=== PATIENT | female | born 1960 | race Caucasian/White ===

== ENCOUNTER → 2020-03-12 07:37 | Outpatient (BNVA) | payer BC, SELFPAY | PROVIDERS: Family Provider Family Medicine; Visit Provider Nurse Practitioner Psychiatric/Mental Health | DX: F90.0 Attention-deficit hyperactivity disorder, predominantly inattentive type (principal); F33.42 Major depressive disorder, recurrent, in full remission | CPT/HCPCS: 99213 ==

== ENCOUNTER → 2020-07-09 07:36 | Outpatient (BNVA) | payer BC, SELFPAY | PROVIDERS: Family Provider Family Medicine; Visit Provider Nurse Practitioner Psychiatric/Mental Health | DX: F90.0 Attention-deficit hyperactivity disorder, predominantly inattentive type (principal); F33.42 Major depressive disorder, recurrent, in full remission | CPT/HCPCS: 99213 ==

== ENCOUNTER → 2020-11-01 07:28 | Outpatient (BNVA) | payer BC, SELFPAY | PROVIDERS: Family Provider Family Medicine; Visit Provider Nurse Practitioner Psychiatric/Mental Health | DX: F90.0 Attention-deficit hyperactivity disorder, predominantly inattentive type (principal); F33.42 Major depressive disorder, recurrent, in full remission | CPT/HCPCS: 99213 ==

== ENCOUNTER 2021-12-15 13:09 | Outpatient (CLI) | payer OTHER, SELFPAY ==
--- NOTE | 2021-12-15 13:18 | XR_ITS ---
WS: [id number] Exam: XR lumbar spine 2-3V* [id number] Date/Time of Exam: 12/15/2021 1:40 PM Reason For Exam: BACK PAIN No acute fracture or dislocation. Degenerative disc changes and mild spondylosis at all levels. Facet DJD at all levels. Moderate levoscoliosis. SI joint DJD noted bilaterally. XR/XR lumbar spine 2-3V* [id number] IMPRESSION: 1. Moderate degenerative changes and levoscoliosis. 2. No fracture or malalignment.
--- NOTE | 2021-12-15 13:18 | XR_ITS ---
WS: [id number] Exam: XR knee LT 1-2V [id number] Date/Time of Exam: 12/15/2021 1:40 PM Reason For Exam: L KNEE PAIN Comparison 04/24/2010. No acute fracture or dislocation. Severe degeneration of the lateral joint compartment with near bone -on-bone articulation. No significant joint effusion. Spurring of the posterior patella. XR/XR knee LT 1-2V [id number] IMPRESSION: 1. Marked degenerative change of the lateral joint compartment. 2. No acute fracture.
== END 2021-12-15 13:10 | disposition home or self-care (01) ==
LOC: RAD 13:10
PROVIDERS: Family Provider Family Medicine; Visit Provider Family Medicine
DX: M47.896 Other spondylosis, lumbar region (principal); M17.12 Unilateral primary osteoarthritis, left knee; M25.562 Pain in left knee; M54.50 Low back pain, unspecified
CPT/HCPCS: 72100; 73560

== ENCOUNTER → 2022-02-10 14:09 | Outpatient (BNVA) | payer MEDICAID, SELFPAY | PROVIDERS: Family Provider Family Medicine; Visit Provider Family Medicine | DX: N19 Unspecified kidney failure (principal); E11.9 Type 2 diabetes mellitus without complications; I10 Essential (primary) hypertension | CPT/HCPCS: 80048 ==

== ENCOUNTER → 2022-03-13 08:55 | Outpatient (BNVA) | payer MEDICAID, SELFPAY | PROVIDERS: Family Provider Family Medicine; Visit Provider Nurse Practitioner Family | DX: B37.2 Candidiasis of skin and nail (principal); R19.7 Diarrhea, unspecified | CPT/HCPCS: 87493 ==

== ENCOUNTER → 2022-10-01 08:41 | Outpatient (BNVA) | payer MEDICAID, SELFPAY | PROVIDERS: Family Provider Family Medicine; PCP Family Medicine; Visit Provider Family Medicine | DX: I10 Essential (primary) hypertension (principal); E78.5 Hyperlipidemia, unspecified; R73.9 Hyperglycemia, unspecified; Z00.00 Encounter for general adult medical examination without abnormal findings | CPT/HCPCS: 80053; 80061; 83036; 84443 ==

== ENCOUNTER → 2023-03-12 07:59 | Outpatient (BNVA) | payer MEDICAID, SELFPAY | PROVIDERS: Family Provider Family Medicine; PCP Family Medicine; Visit Provider Family Medicine | DX: B88.2 Other arthropod infestations (principal); E13.9 Other specified diabetes mellitus without complications | CPT/HCPCS: 80053; 83036; 86618; 86666; 86757 ==

== ENCOUNTER 2023-05-06 02:15 | Emergency (ER) | payer MEDICAID, SELFPAY ==
[2023-05-06 02:20] VITALS: BP 131/63; PULSE 94; RESP 18; TEMP 36.3; O2SAT 100; BMI 29.0
[2023-05-06 02:40] VITALS: BP 131/63; PULSE 86; RESP 20; O2SAT 95
--- NOTE | 2023-05-06 02:54 | XRR_ITS ---
PROCEDURE INFORMATION: Exam: XR Chest Exam date and time: 05/06/2023 2:59 AM Age: 63 years old Clinical indication: Dyspnea; Patient HX: Patient says she has been spraying insecticide the last two days and has gone downhill, started lexapro recently also, small wound to left breast with redness, HX of smoking; Additional info: Dyspnea chemical inhalation TECHNIQUE: Imaging protocol: Radiologic exam of the chest. Views: 1 view. COMPARISON: No relevant prior studies available. FINDINGS: Lungs: Unremarkable. No consolidation. Pleural spaces: Unremarkable. No pleural effusion. No pneumothorax. Heart/Mediastinum: Unremarkable. No cardiomegaly. Bones/joints: Unremarkable. XR/XR chest 1V portable [id number] IMPRESSION: No acute findings.
--- NOTE | 2023-05-06 03:13 | ED_ITS ---
HPI - General Adult General: Chief complaint: General Medical Stated complaint: Stong on Breast Inhaled Fumes Time Seen by Provider: 05/06/23 02:52 History of Present Illness: Patient presents to the ER with complaints of being stung on the inside of her left breast by wasp., Inhaled a bunch of chemical insecticides now her lungs burn, she is having a side effect to Lexapro that she started 2 days ago and since then she has no appetite and has had a bunch of nausea. Review of Systems General: Reports: 10 or more systems reviewed and unremarkable except in HPI and below PFSH ED PFSH: Medical History ADHD (attention deficit hyperactivity disorder), inattentive type Cigarette nicotine dependence Major depression, recurrent, full remission Major depressive disorder, recurrent episode, moderate with anxious distress Psychiatric care Physical Exam Const: COMMON NORMALS: no acute distress, average body habitus, patient oriented x3, no limitations, healthy appearing, alert and well nourished HENMT: COMMON NORMALS: normocephalic, atraumatic, hearing grossly normal bilaterally, external ears normal, Normal external nose present and moist oral mucous membranes HEAD & SCALP: normocephalic and atraumatic NOSE: Normal external nose present EXTERNAL EAR: Yes external ears normal Eye: COMMON NORMALS: Equal, round and reactive pupils present, EOMs intact bilaterally, conjunctivae normal and no scleral icterus CONJUNCTIVA: Yes conjunctivae normal PUPIL: Yes Equal, round and reactive pupils present Neck/C-Spine: COMMON NORMALS: full ROM, no lymphadenopathy, supple, no meningeal signs, no JVD and Thyroid normal THYROID: Thyroid normal Chest: COMMONS NORMALS: normal inspection of the chest and normal palpation of entire chest wall; negative for normal inspection of the breasts (Lesion on medial side of left breast with 1 cm radius erythema around could) Breast/axilla inspection: No normal inspection of the breasts (Lesion on medial side of left breast with 1 cm radius erythema around could) Resp: COMMON NORMALS: normal respiratory effort, No retractions, No use of accessory muscles and clear to auscultation bilaterally AUSCULTATION: clear to auscultation bilaterally Cardio: COMMON NORMALS: no JVD, regular rate, regular rhythm, S1 normal heart sound present, S2 normal heart sound present, No gallops present (Cardio), No clicks present (Cardio), No murmurs present (Cardio) and No rub (Cardio) RATE: regular rate RHYTHM: regular rhythm HEART SOUNDS: S1 normal heart sound present and S2 normal heart sound present GI: COMMON NORMALS: Normal to inspection, nondistended, normoactive bowel sounds present, Soft to palpation, non-tender, No hepatosplenomegaly present and no masses PALPATION: Yes Soft to palpation and Yes No hepatosplenomegaly present : COMMON NORMALS: Yes no CVA tenderness BLADDER/KIDNEY EXAM: Yes no CVA tenderness Back/Pelvis: COMMON NORMALS: no CVA tenderness Neuro: COMMON NORMALS: patient oriented x3 SENSORIUM/ORIENTATION: Yes alert MENINGEAL SIGNS: Yes no meningeal signs Course Vital Signs: Vital signs: Vital Signs Temperature 97.4 F L 05/06/23 02:20 Pulse Rate 86 05/06/23 02:40 Respiratory Rate 20 H 05/06/23 02:40 Blood Pressure 131/63 05/06/23 02:40 Pulse Oximetry 95 05/06/23 02:40 Oxygen Delivery Me thod Room Air 05/06/23 02:20 MDM - General Adult Medical Decision Making Patient presents ER multiple things going on. Probable side effect of Lexapro, bee sting, and chemical inhalation to her lungs. Chest x-ray was obtained which was negative. Physical exam was performed. Patient was given 10 mg Decadron IM and will be discharged home. Patient was instructed to DC the Lexapro and follow-up with her PCP. Differential Diagnosis Medication side effect, insect sting, chemical pneumonitis Medical Records I reviewed the patient's medical records. Lab Data I reviewed the patient's lab results. Discharge Plan Discharge Patient Disposition: Home Clinical Impression: Accidental wasp sting, Acute chemical pneumonitis, Drug side effects Condition: Stable Prescriptions: No Action lisinopril 20 mg tablet 10 mg PO DAILY Qty: 90 3RF escitalopram oxalate [Lexapro] 5 mg tablet 5 mg PO .morning Qty: 30 3RF Rx Instructions: Take one tablet every morning dextroamphetamine-amphetamine [Adderall XR] 30 mg capsule,extended release 24hr 30 mg PO QAM 30 Days Qty: 30 0RF Rx Instructions: Take one capsules every morning metformin 500 mg tablet See Rx Instructions .ROUTE .COMPLEX Qty: 360 4RF Dose Instruction: TAKE 2 TABLETS BY MOUTH TWICE DAILY AFTER MEALS Rx Instructions: TAKE 2 TABLETS BY MOUTH TWICE DAILY AFTER MEALS metoprolol succinate 25 mg tablet extended release 24 hr See Rx Instructions .ROUTE .COMPLEX Qty: 90 3RF Dose Instruction: TAKE 1 TABLET BY MOUTH EVERY DAY FOR heart Rx Instructions: TAKE 1 TABLET BY MOUTH EVERY DAY FOR heart glipizide 10 mg tablet See Rx Instructions .ROUTE .COMPLEX Qty: 90 3RF Dose Instruction: TAKE 1 TABLET BY MOUTH EVERY DAY prior TO first meal of THE DAY Rx Instructions: TAKE 1 TABLET BY MOUTH EVERY DAY prior TO first meal of THE DAY Trulicity 0.75 mg/0.5 mL pen injector 1.5 mg SUBCUT .weekly Qty: 2 5RF Discharge Orders: Discharge ED (Routine); Ordered 05/06/23 Ordered By: Arnaldo Rowley Referrals: Agapito Mcginnis DO [Primary Care Provider] - 1 week Patient Instructions: Pneumonitis (ED), Insect Bite or Sting (ED) Activity Restrictions/Additional Instructions: Please stop taking her Lexapro as it may be causing her side effects. Please use personal protective equipment when spraying insect or pesticides. Please follow-up with your family practice doctor to see if you would benefit from a different antidepressant than Lexapro. Coding Level of Care Code ED Access Services Representative for Darius Hoang
[2023-05-06] MEDS: dexamethasone 10 mg/mL INJ IM (03:23)
== END 2023-05-06 03:30 | disposition home or self-care (01) ==
PROVIDERS: Emergency Provider Emergency Medicine; PCP Family Medicine
DX: T63.461A Toxic effect of venom of wasps, accidental (unintentional), initial encounter (principal); T60.91XA Toxic effect of unspecified pesticide, accidental (unintentional), initial encounter; J68.0 Bronchitis and pneumonitis due to chemicals, gases, fumes and vapors; Z79.84 Long term (current) use of oral hypoglycemic drugs; Z79.85 Long-term (current) use of injectable non-insulin antidiabetic drugs; R11.0 Nausea; T43.225A Adverse effect of selective serotonin reuptake inhibitors, initial encounter
CPT/HCPCS: 71045; 96372; 99284; J1100

== ENCOUNTER → 2023-11-16 11:04 | Outpatient (BNVA) | payer OTHER, SELFPAY | PROVIDERS: PCP Family Medicine; Referring Provider Family Medicine; Visit Provider Internal Medicine | DX: E78.5 Hyperlipidemia, unspecified (principal); E11.9 Type 2 diabetes mellitus without complications; J32.9 Chronic sinusitis, unspecified | CPT/HCPCS: 36415; 80053; 80061; 82044; 83036 ==

== ENCOUNTER → 2024-05-04 11:25 | Outpatient (BNVA) | payer MEDICARE, SELFPAY | PROVIDERS: PCP Family Medicine; Visit Provider Family Medicine | DX: E11.9 Type 2 diabetes mellitus without complications (principal); I10 Essential (primary) hypertension; E78.5 Hyperlipidemia, unspecified; N28.9 Disorder of kidney and ureter, unspecified | CPT/HCPCS: 80053; 80061; 83036 ==

== ENCOUNTER → 2024-10-26 11:15 | Outpatient (BNVA) | payer MEDICARE, SELFPAY | PROVIDERS: PCP Family Medicine; Visit Provider Family Medicine | DX: E11.9 Type 2 diabetes mellitus without complications (principal); I10 Essential (primary) hypertension; E78.5 Hyperlipidemia, unspecified; N28.9 Disorder of kidney and ureter, unspecified | CPT/HCPCS: 80053; 80061; 83036; 85025 ==

== ENCOUNTER 2024-12-15 21:20 | Emergency (ER) | payer MEDICARE, SELFPAY ==
[2024-12-15 21:28] VITALS: BP 168/89; PULSE 88; RESP 18; TEMP 36.9; O2SAT 99
--- NOTE | 2024-12-15 21:35 | ED_ITS ---
HPI - Skin/Abscess/Foreign Bdy General: Chief complaint: Skin/Abscess/Foreign Body Stated complaint: Shingles on nose going to eyes Time Seen by Provider: 12/15/24 21:25 History of Present Illness: 64-year-old female comes in today for co mplaints of tenderness and redness to the bulb of the nose. Patient appears nontoxic. Patient believes that it may be shingles. Patient has been using some antibiotic ointment to the area for discomfort. Patient reports symptoms for last 3 days. Patient has a history of diabetes mellitus, COPD, ADHD, and hypertension. Related Data Previous Rx's ?Medication ?Instructions ?Recorded glipizide 10 mg tablet See Rx Instructions .Route 0 12/28/23 .COMPLEX #90 tabs albuterol sulfate 90 mcg/actuation 2 inh inhalation Q4 H PRN shortness 06/13/24 breath activated powder inhaler of breath or wheezing #1 ea prednisone 20 mg tablet 20 mg PO DAILY 5 days #5 tab s 07/15/24 fluconazole 150 mg tablet 150 mg PO Q3D 2 doses #2 tab s 08/15/24 metoprolol succinate 25 mg See Rx Instructions .Route 09/07/24 tablet,extended release 24 hr .COMPLEX #90 tabs dulaglutide 0.75 mg/0.5 mL 0.75 mg (0.5 mL) SUBCUT Q7D 3 10/26/24 subcutaneous pen injector months #6.5 mL (Trulicity) gabapentin 100 mg capsule 100 mg PO BID neuropathy #60 caps 10/26/24 dextroamphetamine-amphetamine ER 60 mg (2 x 30 mg) PO QAM 30 days 11/13/24 30 mg 24hr capsule,extend release #60 caps lisinopril 20 mg tablet 10 mg (1/2 x 20 mg) PO DAILY for 12/05/24 bp #90 tabs metformin 500 mg tablet See Rx Instructions .Route 0 12/06/24 .COMPLEX #360 tabs amoxicillin 875 mg-potassium 1 tab PO BID #14 tabs clavulanate 125 mg tablet hydrocodone 5 mg-acetaminophen 325 1 tab PO Q6H PRN pa in #10 tabs 12/15/24 mg tablet lidocaine 5 % topical cream 1 applic topical QID PRN p ain #15 12/15/24 grams valacyclovir 1 gram tablet 1,000 mg PO TID 7 days #21 tabs 12/15/24 Allergies Allergy/AdvReac Type Severity Reaction Status Date / Time codeine Allergy Severe ADR-Nausea Verified 12/15/24 21:30 escitalopram (From Lexapro) AdvReac Severe ADR-Nausea Verified 12/15/24 21:30 all cyclines Allergy Severe Unknown Uncoded 12/15/24 21:30 Review of Systems General: Reports: 10 or more systems reviewed and unremarkable except in HPI and below PFSH ED PFSH: Medical History Cigarette nicotine dependence Major depressive disorder, recurrent episode, moderate with anxious distress Psychiatric care Major depression, recurrent, full remission ADHD (attention deficit hyperactivity disorder), inattentive type Social History Smoking and tobacco/nicotine status: current every day tobacco/nicotine user Physical Exam Const: COMMON NORMALS: alert HENMT: COMMON NORMALS: normocephalic HEAD & SCALP: normocephalic Neck/C-Spine: COMMON NORMALS: full ROM Resp: COMMON NORMALS: normal respiratory effort Cardio: COMMON NORMALS: regular rate RATE: regular rate Back/Pelvis: COMMON NORMALS: thoracic and lumbar spine normal to inspection Extremity: COMMON NORMALS: full ROM Neuro: SENSORIUM/ORIENTATION: Yes alert Skin: NARRATIVE SKIN EXAM: Redness and erythema noted to the bulb of the nose. No obvious vesicles are seen. Tenderness to touch. Course Vital Signs: Vital signs: Vital Signs Temperature 98.5 F 12/15/24 21:28 Pulse Rate 88 12/15/24 21:28 Respiratory Rate 18 12/15/24 21:28 Blood Pressure 168/89 12/15/24 21:28 Pulse Oximetry 99 12/15/24 21:28 MDM - Skin/Abscess/Foreign Bdy Medicial Decision Making 64-year-old female comes in today with pain to the bulb of her nose starting about 3 days ago. Patient reports increasing redness and burning sensation. Oral mucosa is normal. Differential diagnosis includes herpes zoster, herpes simplex, cellulitis. Will go ahead and start patient on Augmentin to treat cellulitis. Patient will also be covered with valacyclovir for possible herpes zoster infection. Patient was given some hydrocodone to help with pain. Patient was also given some lidocaine cream for further pain relief. Patient reports understanding of care plan and need for follow-up or return to the ER. No radiology studies performed this visit Discharge Plan Discharge Patient Disposition: Home Clinical Impression: Cellulitis Qualifiers: Site of cellulitis: face Qualified Code(s): L03.211 - Cellulitis of face Herpes zoster Qualifiers: Herpes zoster complications: with other complications Qualified Code(s): B02.8 - Zoster with other complications Condition: Stable Prescriptions: New valacyclovir 1 gram tablet 1,000 mg PO TID 7 Days Qty: 21 0RF amoxicillin-pot clavulanate 875-125 mg tablet 1 tab PO BID Qty: 14 0RF hydrocodone-acetaminophen 5-325 mg tablet 1 tab PO Q6H PRN (Reason: pain) Qty: 10 0RF Rx Instructions: DX: cellulitis,herpes zoster lidocaine 5 % cream 1 applic topical QID PRN (Reason: pain) Qty: 15 0RF No Action Trulicity 0.75 mg/0.5 mL pen injector 0.75 mg SUBCUT Q7D 90 Days Qty: 6.5 0RF Rx Instructions: 0.75mg weekly x one month gabapentin 100 mg capsule 100 mg PO BID Qty: 60 0RF prednisone 20 mg tablet 20 mg PO DAILY 5 Days Qty: 5 0RF fluconazole 150 mg tablet 150 mg PO Q3D 0 Days Qty: 2 1RF Rx Instructions: may repeat second dose 72 hrs after first dose if symptoms persist glipizide 10 mg tablet See Rx Instructions .ROUTE .COMPLEX Qty: 90 3RF Dose Instruction: TAKE 1 TABLET BY MOUTH EVERY DAY prior TO first meal of THE DAY Rx Instructions: TAKE 1 TABLET BY MOUTH EVERY DAY prior TO first meal of THE DAY albuterol sulfate 90 mcg/actuation aerosol powdr breath activated 2 inh inhalation Q4H PRN (Reason: shortness of breath or wheezing) Qty: 1 12RF metoprolol succinate 25 mg tablet extended release 24 hr See Rx Instructions .ROUTE .COMPLEX Qty: 90 3RF Dose Instruction: TAKE 1 TABLET BY MOUTH EVERY DAY FOR heart Rx Instructions: TAKE 1 TABLET BY MOUTH EVERY DAY FOR heart dextroamphetamine-amphetamine 30 mg capsule,extended release 24hr 60 mg PO QAM 30 Days Qty: 60 0RF lisinopril 20 mg tablet 10 mg PO DAILY Qty: 90 3RF metformin 500 mg tablet See Rx Instructions .ROUTE .COMPLEX Qty: 360 4RF Dose Instruction: TAKE 2 TABLETS BY MOUTH TWICE DAILY AFTER MEALS Rx Instructions: TAKE 2 TABLETS BY MOUTH TWICE DAILY AFTER MEALS Discharge Orders: Discharge ED (Routine); Ordered 12/15/24 Ordered By: Shashi Mejia Referrals: Agapito Mcginnis DO [Primary Care Provider] - Discharge Diet: Usual diet Discharge Activity: Increase activity as tolerated Patient Instructions: Shingles (ED) Activity Restrictions/Additional Instructions: Home and rest. Apply lidocaine ointment to the area to help with pain and discomfort. Take medications as directed for pain and infection. Follow-up with primary care in 2 to 3 days for recheck. Return to ED for worsening symptoms. Print Language: Serbian Coding Level of Care Code ED Advertising Solicitor for Darius Hoang
[2024-12-15] MEDS: HYDROcodone-acetaminophen 5-325 mg Tablet 1 TAB PO (22:04)
[2024-12-15] MEDS: amoxicillin-clav 875-125 mg Tablet 1 TAB PO (22:04)
[2024-12-15] MEDS: valACYclovir 1,000 mg Tablet 1000 MG PO (22:04)
[2024-12-15] MEDS: lidocaine-prilocaine cream 5 gm 1 APPLIC TOPICAL (22:04)
[2024-12-15 22:15] VITALS: BP 161/82; PULSE 89; O2SAT 98
== END 2024-12-15 22:01 | disposition home or self-care (01) ==
PROVIDERS: Emergency Provider Nurse Practitioner Family; PCP Family Medicine
DX: L03.211 Cellulitis of face (principal); B02.8 Zoster with other complications; Z79.84 Long term (current) use of oral hypoglycemic drugs; Z72.0 Tobacco use
CPT/HCPCS: 99283; J9999